=== PATIENT | male | born 1985 | race Caucasian/White ===

== ENCOUNTER → 2020-04-29 15:29 | Outpatient (CLI) | payer OTHER, SELFPAY | PROVIDERS: PCP Family Medicine; Referring Provider Family Medicine; Visit Provider Family Medicine | DX: R05 Cough (principal) | CPT/HCPCS: 87635; U0003 ==

== ENCOUNTER → 2020-10-17 18:39 | Outpatient (CLI) | payer OTHER, SELFPAY | PROVIDERS: PCP Family Medicine; Referring Provider Family Medicine; Visit Provider Family Medicine | DX: Z20.822 Contact with and (suspected) exposure to COVID-19 (principal) | CPT/HCPCS: 87635; U0005; U0003 ==

== ENCOUNTER 2021-01-02 12:29 | Outpatient (RCR) | payer OTHER, SELFPAY | END 2021-03-10 23:59 | LOC: IMMUN 12:29 | PROVIDERS: PCP Family Medicine; Visit Provider Family Medicine | DX: Z23 Encounter for immunization (principal) | CPT/HCPCS: 0001A; 0002A; 91300 ==

== ENCOUNTER → 2021-09-02 15:28 | Outpatient (CLI) | payer OTHER, SELFPAY ==
[2021-09-02 18:10] LABS: Anion Gap 8 (5-15); BUN 19 mg/dL (7-18); BUN/Creat Ratio 17.3 RATIO (10-20); Calcium,Total 9.3 mg/dL (8.5-10.1); Chloride 103 mmol/L (98-107); EST Glomerular Filtration Rate 81 mL/min (>60); Est Glom Filt Rate - Afr Amer 98 mL/min (>60); Glucose 92 mg/dL (74-106); PSA,Total - Annual Screen 0.48 ng/mL (0.00-4.00); Potassium 3.9 mmol/L (3.5-5.1); Sodium Level 138 mmol/L (136-145)
== END ==
PROVIDERS: PCP Family Medicine; Referring Provider Family Medicine; Visit Provider Nurse Practitioner Family
DX: R63.1 Polydipsia (principal); Z12.5 Encounter for screening for malignant neoplasm of prostate
CPT/HCPCS: 36415; 80048; 84153; G0103

== ENCOUNTER 2022-01-01 17:57 | Emergency (ER) | payer OTHER, SELFPAY ==
[2022-01-01 17:59] VITALS: BP 108/94; PULSE 76; RESP 16; TEMP 36.8; O2SAT 98; BMI 30.5
--- NOTE | 2022-01-01 19:09 | EDS_ITS ---
HPI History of Present Illness Chief Complaint: Lower Extremity Injury Detail of Chief Complaint: Atraumatic left lower leg mild pain and swelling. Informant: patient Onset/Context/Timing Onset: Today Context: Gradual Onset Timing: Continuous Current Severity: Mild Maximum Severity: Mild Associated Symptoms Associated Symptoms: Negative for Parasthesia, Weakness and Loss of Funtion Narrative Narrative: 36-year-old male past medical history of mild asthma. States he recently flew to and from [place] was by an hour flight. He did a lot of walking while there. Developed some discomfort in his left foot thought his shoe was too tight. Then he developed some discomfort in his left calf. He has never had a DVT or PE. Denies chest pain or shortness of breath. There is no family history of clots. Prior similar symptoms: No Recent Illness/Hospitalization: No [facility] Medical History Encounter for screening for COVID-19 Esophagitis Home Medications albuterol sulfate 90 mcg/actuation breath activated powder inhaler 1 inh INHALATION ONCE 09/23/21 [History Last Taken Unknown] Allergy/AdvReac Type Severity Reaction Status Date / Time No Known Allergies Allergy Unverified 01/01/22 17:58 Social History Smoking Status: Former smoker ROS ROS ED ROS Narrative Denies. Review of Systems ROS Unobtainable: Denies due to encephalopathy Constitutional Constitutional ED: Denies fever(s) Eyes Eyes: Denies change in vision ENT ENT ED: Denies ear pain Cardiovascular Cardiovascular: Denies chest pain Respiratory/Chest Respiratory/Chest: Denies dyspnea Gastrointestinal Gastrointestinal: Denies abdominal pain Genitourinary Genitourinary ED: Denies dysuria Musculoskeletal Musculoskeletal: Denies myalgias Integumentary Denies rash Neurologic Neurologic: Denies headache(s) Psychiatric Psychiatric: Denies depression Endocrine Endocrinology: Denies polyuria Hematologic/Lymphatic Hematologic/Lymphatic: Denies easy bruising Allergic/Immunologic Allergic/Immunologic ED: Denies urticaria EXAM Physical Exam Narrative Exam Narrative: 36-year-old male no acute distress. HEENT neck exam normal. Lungs are clear. Heart rate and rhythm are normal. Abdomen is soft nontender. Moving all 4 extremities. He has mild swelling to his left leg mild calf tenderness. He has full flexion-extension of the left hip, knee ankle and foot. Dorsi plantarflexion intact. DP pulse intact. Small contusion on the left medial great toe. Have no pain cords. Left knee has normal exam. Const Vital Signs: 01/01/22 17:59 Temperature 98.2 F Temperature Source Temporal Pulse Rate 76 Respiratory Rate 16 Blood Pressure 108/94 H Blood Pressure Mean 98 Pulse Ox 98 Oxygen Delivery Method Room Air Positive well nourished and well developed; Negative for obese, cachectic, contractures or unkempt General Appearance ED: well developed and NAD; Negative for unkempt, cachectic or contractures Nutritional Appearance: Negative for cachectic or obese HEENT Reports moist mucous membranes normocephalic and atraumatic Neck full ROM and supple Thyroid: Negative for tender Chest Wall inspection of chest normal and palpation of chest normal Resp normal respiratory effort, no retractions and clear to auscultation bilaterally Auscultation: Negative for rales, rhonchi or wheezes Cardio regular rate, regular rhythm, S1 normal heart sound, S2 normal heart sound and no murmurs GI non-tender, non-distended and no masses Auscultation: normoactive bowel sounds Palpation: soft; Negative for tender or guarding Back/Spine no CVA tenderness Extremity normal to inspection and full ROM Extremity Narrative: Left lower extremity mild swelling. Mild calf tenderness. No cords. Full flexion-extension left hip, left knee left ankle and foot. Neurovascular intact with normal DP pulse. Cap refill. Small contusion medial left great toe. General Extremety ED: Negative for cyanosis or edema General Extremity: Negative for cyanosis or edema Psych mental status grossly normal Appearance: Negative for unkempt Mood & Affect: Negative for anxious Skin no wounds Lesions: no lesions Rashes: no rashes Trauma: Negative for abrasion or laceration MDM MDM MDM Narrative Medical decision making narrative: 36-year-old male recent slight right left lower extremity discomfort without swelling. His ultrasound be obtained are not a DVT. Venous study of his left lower extremity as read by the therapy technician was negative. Repeat exam patient doing well at 7:42 PM to be discharged home. Elevate his leg. Motrin for pain. Follow-up if not improving. Discharge Plan Triage Chief Complaint: Lower Extremity Injury Other Complaint: General Illness ED Provider: Quan Santiago Dx/Rx/DC Orders Clinical Impression: Musculoskeletal leg pain Instructions: ED Muscle Strain, Extremity Prescriptions: No Action albuterol sulfate 90 mcg/actuation aerosol powdr breath activated 1 inh inhalation ONCE RF: 0 Primary Care Provider: Jayson Dubose Referrals: Jayson Dubose MD [Primary Care Provider] - 1 Week if not improving Activity Restrictions/Additional Instructions: The ultrasound of your leg was negative there is no blood clot. This is most likely secondary to all the walking he did with some muscle strain and swelling. Ice and elevate your leg. Motrin for pain and swelling. Follow-up with your doctor if not improving and return if worse. Disposition Disposition: Home, Self Care
--- NOTE | 2022-01-01 19:12 | US_ITS ---
STUDY: VENOUS DOPPLER ULTRASOUND - LEFT LOWER EXTREMITY REASON FOR EXAM: Male, 36 years old. LEG PAIN AND SWELLING LT FOOT SWELLING AND LT ANTERIOR KNEE and quot;WARMTH and quot; TECHNIQUE: Ultrasound evaluation of the deep vein system to include bell-scale imaging and compression was performed. Bell-scale imaging and Doppler sonographic evaluation, including duplex spectral analysis and qualitative color flow sonography, was performed. COMPARISON: None. FINDINGS: Common Femoral Vein: Normal compression, spontaneity and augmentation. Normal color Doppler. Common Femoral Vein/Greater Saphenous Junction: Normal compression, spontaneity and augmentation. Normal color Doppler. Superficial Femoral Proximal: Normal compression, spontaneity and augmentation. Normal color Doppler. Superficial Femoral Middle: Normal compression, spontaneity and augmentation. Normal color Doppler. Superficial Femoral Distal: Normal compression, spontaneity and augmentation. Normal color Doppler. Popliteal Vein: Normal compression, spontaneity and augmentation. Normal color Doppler. Posterior Tibial Vein: Normal compression, spontaneity and augmentation. Normal color Doppler. Peroneal Vein: Normal compression, spontaneity and augmentation. Normal color Doppler. There is no demonstrated deep venous thrombosis. US/Venous Duplex Imag/Limited/Uni IMPRESSION: There is no demonstrated deep venous thrombosis. Electronically Signed: Edmund Cunningham MD at 19:54 EDT ,
[2022-01-01 20:06] VITALS: RESP 16
== END 2022-01-01 20:07 | disposition home or self-care (01) ==
PROVIDERS: Emergency Provider Emergency Medicine; PCP Family Medicine; Visit Provider Emergency Medicine
DX: M79.662 Pain in left lower leg (principal); M79.89 Other specified soft tissue disorders; Z87.891 Personal history of nicotine dependence
CPT/HCPCS: 93971; 99282

== ENCOUNTER → 2023-09-09 | Outpatient (CLI) | payer OTHER, SELFPAY ==
--- NOTE | 2023-09-09 15:35 | RAD_ITS ---
EXAM: XR CHEST, 2 VIEWS CLINICAL INDICATION: ACUTE BRONCHITIS TECHNIQUE: Frontal and lateral views of the chest. COMPARISON: No relevant prior studies available. FINDINGS: LUNGS AND PLEURAL SPACES: Unremarkable. No consolidation or edema. No pneumothorax. No effusion. HEART: Unremarkable. Cardiac silhouette not enlarged. MEDIASTINUM: Central airways and mediastinal contour are unremarkable. BONES/JOINTS: Unremarkable. No acute fracture. SOFT TISSUES: Unremarkable. RAD/Chest PA and Lateral IMPRESSION: No radiographic evidence of acute cardiopulmonary disease. Electronically Signed: Paul Souza MD at 23:40 EST ,
== END | disposition home or self-care (01) ==
LOC: MTRAD 15:36
PROVIDERS: PCP Family Medicine; Referring Provider Family Medicine; Visit Provider Family Medicine
DX: J20.9 Acute bronchitis, unspecified (principal)
CPT/HCPCS: 71046